=== PATIENT | male | born 1995 | race American Indian/Alaskan Native ===

== ENCOUNTER 2018-11-26 20:26 | Emergency (ER) | payer OTHER ==
[2018-11-26 20:28] VITALS: BMI 23.6
[2018-11-26 20:43] VITALS: TEMP 98.2
--- NOTE | 2018-11-26 22:16 | ED PDOC ---
Arrival/HPI - General Chief Complaint: Lower Extremity Problem/Injury Time Seen by Provider: 11/26/18 20:31 Historian: Patient - History of Present Illness Narrative History of Present Illness (Text): 23 y/o male with PMH of transposition of great vessels (s/p icd) presents to the ED c/o left knee pain s/p injury playing basketball 1 hour [employer]. Pt states someone fell on his left knee, causing immediate pain to medial joint line. No head strike or LOC. Unable to bear weight on the knee. No medication prior to arrival. Denies numbness, weakness, paresthesias, open wounds, pain elsewhere. Past Medical History - Provider Review Nursing Documentation Reviewed: Yes - Infectious Disease Hx of Infectious Diseases: None - Tetanus Immunization Tetanus Immunization: Up to Date - Cardiac Other/Comment: Open heart surgery. L sided pacemaker defibrillator - Psychiatric Hx Depression: No Hx Emotional Abuse: No Hx Physical Abuse: No Hx Substance Use: No - Anesthesia Hx Anesthesia: No - Suicidal Assessment Feels Threatened In Home Enviroment: No Family/Social History - Physician Review Nursing Documentation Reviewed: Yes Family/Social History: No Known Family HX Smoking Status: Never Smoked Hx Alcohol Use: No Hx Substance Use: No Hx Substance Use Treatment: No Allergies/Home Meds Allergies/Adverse Reactions: Allergies No Known Allergies Allergy (Verified 11/26/18 20:28) Home Medications: Home Meds Medication Instructions Recorded Confirmed Atenolol [Tenormin] 1 tab PO DAILY 11/26/18 11/26/18 Review of Systems - Review of Systems Constitutional: Normal. absent: Fevers Eyes: Normal. absent: Vision Changes, Eye Pain ENT: Normal. absent: Sore Throat, Sinus Congestion Respiratory: Normal. absent: SOB, Cough Cardiovascular: Normal. absent: Chest Pain, Palpitations Gastrointestinal: Normal. absent: Abdominal Pain, Nausea, Vomiting Genitourinary Male: Normal Musculoskeletal: Other (left knee pain). absent: Back Pain, Neck Pain Skin: Normal. absent: Rash, Laceration Neurological: Normal. absent: Headache, Dizziness Endocrine: Normal Hemo/Lymphatic: Normal Psychiatric: Normal Physical Exam Vital Signs Reviewed: Yes Vital Signs Temp Pulse Resp BP Pulse Ox 11/26/18 20:26 98.2 F 60 18 115/81 100 Temperature: Afebrile Blood Pressure: Normal Pulse: Regular Respiratory Rate: Normal Appearance: Positive for: Well-Appearing, Non-Toxic, Comfortable Pain Distress: None Mental Status: Positive for: Alert and Oriented X 3 - Systems Exam Head: Present: Atraumatic, Normocephalic Pupils: Present: PERRL Extroacular Muscles: Present: EOMI Conjunctiva: Present: Normal Mouth: Present: Moist Mucous Membranes Neck: Present: Normal Range of Motion Respiratory/Chest: Present: Clear to Auscultation, Good Air Exchange. No: Respiratory Distress, Accessory Muscle Use Cardiovascular: Present: Regular Rate and Rhythm, Normal S1, S2. No: Murmurs Abdomen: No: Tenderness, Distention, Peritoneal Signs Back: Present: Normal Inspection Upper Extremity: Present: Normal Inspection, Normal ROM, NORMAL PULSES, Neurovascularly Intact. No: Cyanosis, Edema, Temperature Abnormalties Lower Extremity: Present: Normal Inspection, NORMAL PULSES, Tenderness (left knee medial joint line), Swelling (medial joint line, left knee), Neurovascularly Intact, Capillary Refill < 2 s. No: Edema, Normal ROM (decreased at left knee), Temperature Abnormalties Neurological: Present: GCS=15, CN II-XII Intact, Speech Normal, Motor Func Grossly Intact, Normal Sensory Function, Gait Normal Skin: Present: Warm, Dry, Normal Color. No: Rashes Psychiatric: Present: Alert, Oriented x 3, Normal Insight, Normal Concentration, Normal Affect, Normal Mood Medical Decision Making ED Course and Treatment: Initial Plan: * Left Knee XR * Left Knee CT * Toradol CT negative for acute osseous abnormality. Pt reports improvement in pain with medications. Placed in left knee immobilizer by technical communicator. Crutch training provided by tech. Pt demonstrated safe and appropriate crutch use prior to discharge. Diagnostic testing results and plan of care discussed with patient. Strict instructions given regarding prescription use, importance of followup, and signs/symptoms to return to ER including worsening pain, numbness, weakness, paresthesias, or any other new/worsening symptoms. Pt verbalized understanding of discussion. Patient is A&Ox3, ambulating with steady gait with crutches, with vital signs stable for discharge. - RAD Interpretation Radiology Orders: 11/26/18 21:02 EXT LOWER W/O CONTRAST LEFT [CT] Stat 11/26/18 21:57 KNEE LEFT 2 VIEWS (AP & LAT) [RAD] Stat Disposition/Present on Arrival - Present on Arrival Any Indicators Present on Arrival: No History of DVT/PE: No History of Uncontrolled Diabetes: No Urinary Catheter: No History of Decub. Ulcer: No History Surgical Site Infection Following: None - Disposition Have Diagnosis and Disposition been Completed?: Yes Diagnosis: Knee sprain Disposition: HOME/ ROUTINE Disposition Time: 00:00 Condition: IMPROVED Discharge Instructions (ExitCare): Knee Sprain (DC) Additional Instructions: Keep knee in immobilizer until followup Ibuprofen every 8 hours with food as needed for pain Rest, no strenuous activity Compress, ice, and elevate injured knee Use crutches to move around Followup with orthopedics within 2 days Followup with primary doctor within 2 days Return to ER with any new/worsening symptoms Prescriptions: Ibuprofen [Motrin Tab] 600 mg PO Q8 #30 tab Referrals: Jesse Hicks III, MD [Medical Doctor] - Follow up with primary Norbert Fong [Primary Care Provider] - Follow up with primary Forms: [facility] (Georgian), WORK NOTE
[2018-11-26 23:21] VITALS: BP 116/69; PULSE 66; RESP 19; O2SAT 98
--- NOTE | 2018-11-27 09:49 | RAD ---
Date of service: 11/26/2018 PROCEDURE: Left Knee Radiographs. HISTORY: Pain. COMPARISON: None. FINDINGS: BONES: The patient is unable to straighten the left knee. There is no obvious fracture JOINTS: Normal. No osteoarthritis. JOINT EFFUSION: None. OTHER FINDINGS: None. IMPRESSION: Negative study
--- NOTE | 2018-11-27 13:10 | CT ---
Date of service: 11/26/2018 HISTORY: left medial knee pain, unable to weight bear COMPARISON: None available. FINDINGS: BONES: Normal. No fracture. JOINTS: Normal. No osteoarthritis. SOFT TISSUE: Normal. OTHER FINDINGS: None . IMPRESSION: Normal left knee.
== END 2018-11-27 00:34 | disposition home or self-care (01) ==
LOC: ED 20:26
DX: S83.92XA Sprain of unspecified site of left knee, initial encounter (principal); W19.XXXA Unspecified fall, initial encounter; Y93.67 Activity, basketball
CPT/HCPCS: 73560; 73700; 96372; 99283; J1885